=== PATIENT | female | born 1950 | race Caucasian/White ===

== ENCOUNTER → 2020-04-07 | Outpatient (CLI) | payer OTHER, MEDICARE | LOC: BC 10:59 | PROVIDERS: ATTEND Family Medicine | DX: Z12.31 Encounter for screening mammogram for malignant neoplasm of breast (principal); Z00.00 Encounter for general adult medical examination without abnormal findings; Z78.0 Asymptomatic menopausal state ==

== ENCOUNTER → 2021-10-21 | Outpatient (CLI) | payer OTHER, MEDICARE | LOC: BC 14:21 | PROVIDERS: ATTEND Family Medicine | DX: Z12.31 Encounter for screening mammogram for malignant neoplasm of breast (principal) ==